=== PATIENT | female | born 1995 | race Caucasian/White ===

== ENCOUNTER 2019-01-07 09:33 | Inpatient (IN) | payer OTHER ==
[~2019-01-07] VITALS: Ht 165.1 cm; Wt 2.7 kg
[2019-01-07] MEDS ORDERED: PRENATAL TABLE1 EAC4 PO (09:42)
== END 2019-01-09 15:59 | disposition home or self-care (01) | DRG 788 ==
LOC: LDR 09:33 → OB/GYN 09:33
PROVIDERS: ADMIT Obstetrics & Gynecology
PROC: 4A1HXCZ Monitoring of Products of Conception, Cardiac Rate, External Approach (ICD-10-PCS; 2019-01-07)
PROC: 10D00Z1 Extraction of Products of Conception, Low, Open Approach (ICD-10-PCS; principal; 2019-01-07 16:00)
DX: O82 Encounter for cesarean delivery without indication (principal); Z3A.38 38 weeks gestation of pregnancy; Z37.0 Single live birth